=== PATIENT | male | born 1945 ===

== ENCOUNTER 2018-12-25 11:09 | Outpatient (CLI) | payer OTHER ==
[~2018-12-25] VITALS: Ht 182.9 cm; Wt 108.9 kg
== END 2018-12-25 15:23 | disposition home or self-care (01) ==
LOC: OFIC 805 11:09
DX: J31.0 Chronic rhinitis (principal); H61.23 Impacted cerumen, bilateral; H90.3 Sensorineural hearing loss, bilateral